=== PATIENT | male | born 1940 | race Caucasian/White ===

== ENCOUNTER → 2016-11-17 | Outpatient (CLI) | payer OTHER ==
[~2016-11-17] MED LIST: ASPIRIN81 M2 PO; FISH OIL 1,0001 EAC5 PO; LISINOPRIL-HCT1 EAC2 PO; LISINOPRIL20 MG PO; MULTIVITAMINS1 EAC7 PO; NORCO 5-325 TA1 EACH PO; VALIUM5 MG PO
== END ==
LOC: MRI 07:03
DX: S83.242A Other tear of medial meniscus, current injury, left knee, initial encounter (principal); M76.52 Patellar tendinitis, left knee; X58.XXXA Exposure to other specified factors, initial encounter; Y93.89 Activity, other specified; Y92.89 Other specified places as the place of occurrence of the external cause; Y99.8 Other external cause status

== ENCOUNTER → 2017-10-10 | Outpatient (CLI) | payer OTHER ==
[~2017-10-10] VITALS: Ht 177.8 cm; Wt 89.8 kg
--- NOTE | ~2017-10-10 | PATH ---
[facility] [address] [place] [address] PATHOLOGY RPT PROCEDURE Name: JAYESH AMAYA JR Room #: REG CLI M.R.#: [id number] Admission: 10/10/17 Date of : 44 Discharge: Report #: [id number] Path Case #: [id number] [facility] Accession Number: [id number] . 01 Material submitted: . BX GASTRITIS . 02 Diagnosis: Gastric mucosa, gastritis, endoscopic biopsy: - Mild reactive gastropathy. - Negative for intestinal metaplasia or atrophy. - Negative for Helicobacter pylori (properly controlled immunohistochemical stain performed). (IUV:mgr; 10/11/17) . . QRQ/10/11/2017 . 02 Electronically signed: . Nithya Mcgill MD, Pathologist NPI- [id number] . 01 Gross description: . Received in formalin labeled "Jayesh Amaya Jr, BX gastritis" and consists of 2 soft red tissue fragments each averaging 0.3 cm. They are entirely submitted as A1. (NICOLASA; 10/10/2017) JBR/JBR . 02 CPT . 372505 Performed at: [address], [place] [id number] MD Nelson Sandhu MD Phone: [phone] Performed at: [address] [id number] MD Nithya Mcgill MD Phone: [phone]
--- NOTE | ~2017-10-10 | P ---
[facility] [place] [address] PROCEDURE REPORT Name: ZEINA AMAYA Room #: REG [facility].#: [id number] Admission: 10/10/17 Attend Phys: Gio Vizcarra Discharge: Date of : 42 Report #: [id number] THIS REPORT FOR: //name// CC: Gio Wu MD DATE OF SERVICE: 10/10/2017 PROCEDURE PERFORMED: Colonoscopy. HISTORY OF PRESENT ILLNESS: The patient is a 77-year-old male with a Hemoccult positive stool and anemia. He denies any obvious blood in his stools. Upper endoscopy today showed gastritis and grade A erosive esophagitis, but no evidence of bleeding. Plan is for colonoscopy. DESCRIPTION OF PROCEDURE: The risks and benefits of the procedure were explained to the patient, those risks including but not limited to bleeding, perforation, the risk of sedation. He understood these risks and gave informed consent. Sedation was given using propofol per Anesthesia. Next, a digital rectal exam showed external hemorrhoids, otherwise normal. Next, using a standard Olympus colonoscope, the scope was placed in the patient's anus and advanced under direct vision to the cecum. The overall prep was excellent. The cecum and ileocecal valve were normal in appearance. Ascending, transverse and descending colon were normal. There were a few scattered diverticula noted in the sigmoid colon, no evidence of inflammation or bleeding. The rectal mucosa was normal. On retroflexion, no abnormalities were noted. The scope was then withdrawn and the procedure terminated. The patient tolerated the procedure well. IMPRESSION: 1. Sigmoid diverticulosis. 2. External hemorrhoids. 3. Otherwise, normal colonoscopy. RECOMMENDATIONS: We will place the patient on daily PPI therapy and then monitor hemoglobin. Thank you for allowing me to participate in his care. By: 0900 1143 Gio José MD /nt
--- NOTE | ~2017-10-10 | P ---
[facility] [place] [address] PROCEDURE REPORT Name: ZEINA AMAYA Room #: REG [facility].#: [id number] Admission: 10/10/17 Attend Phys: Gio Vizcarra Discharge: Date of : 42 Report #: [id number] THIS REPORT FOR: //name// CC: Gio Wu MD DATE OF SERVICE: 10/10/2017 PROCEDURE PERFORMED: Upper endoscopy with biopsies. HISTORY OF PRESENT ILLNESS: The patient is a 77-year-old male with a history of heme-positive stools and anemia. He takes Aleve on a daily basis. Denies any symptoms. No obvious blood in his stool. Plan is for EGD and colonoscopy today. DESCRIPTION OF PROCEDURE: The risks and benefits of the procedure were explained to the patient, those risks including but not limited to bleeding, perforation, the risk of sedation. He understood these risks and gave informed consent. Sedation was given using propofol per Anesthesia. Next, using a standard Olympus upper endoscope, the scope was placed in the patient's mouth and advanced under direct vision through the esophagus, stomach and into the second portion of the duodenum. The upper and mid esophagus was normal in appearance. In the distal esophagus, grade A erosive esophagitis was noted. No evidence of bleeding. The gastric mucosa in the fundus and body were normal; however, in the antrum, there was a moderate gastritis. No evidence of bleeding. Biopsies were obtained to rule out H. pylori. The pylorus was normal and patent. The duodenal bulb, first and second portion were all normal. The scope was then withdrawn and the procedure terminated. The patient tolerated the procedure well. IMPRESSION: 1. Grade A erosive esophagitis. 2. Gastritis. 3. Otherwise, normal upper endoscopy. RECOMMENDATIONS: 1. We recommend a trial of daily PPI therapy and monitoring hemoglobin. 2. We will proceed with colonoscopy next today. [facility] [address] [place] [address] PROCEDURE REPORT Name: ZEINA AMAYA Room #: REG [facility]#: [id number] Admission: 10/10/17 Attend Phys: Gio Vizcarra Discharge: Date of : 42 Report #: [id number] Thank you for allowing me to participate in his care. By: 0835 1052 Gio José MD /ori
== END | disposition home or self-care (01) ==
LOC: GI 07:01
DX: K57.30 Diverticulosis of large intestine without perforation or abscess without bleeding (principal); K64.4 Residual hemorrhoidal skin tags; K22.10 Ulcer of esophagus without bleeding; K31.9 Disease of stomach and duodenum, unspecified; I10 Essential (primary) hypertension; Z98.890 Other specified postprocedural states; Z96.652 Presence of left artificial knee joint; Z98.52 Vasectomy status; Z79.899 Other long term (current) drug therapy
CPT/HCPCS: 62110; 62900

== ENCOUNTER → 2018-01-23 | Outpatient (CLI) | payer OTHER | END | disposition home or self-care (01) | LOC: GI 06:49 | DX: R19.5 Other fecal abnormalities (principal); Z79.899 Other long term (current) drug therapy ==

== ENCOUNTER → 2018-07-16 | Outpatient (CLI) | payer OTHER | LOC: ULTRA 07:28 | DX: N28.1 Cyst of kidney, acquired (principal); R14.0 Abdominal distension (gaseous) ==

== ENCOUNTER → 2018-07-29 | Outpatient (CLI) | payer OTHER ==
[2018-07-29 09:10] LABS: CREATININE 1.2 mg/dL (0.7-1.3)
== END ==
LOC: NUC 08:37
PROVIDERS: Neuromusculoskeletal Medicine & OMM
DX: N28.1 Cyst of kidney, acquired (principal); M85.89 Other specified disorders of bone density and structure, multiple sites; M47.815 Spondylosis without myelopathy or radiculopathy, thoracolumbar region; M41.85 Other forms of scoliosis, thoracolumbar region; N40.0 Benign prostatic hyperplasia without lower urinary tract symptoms

== ENCOUNTER → 2018-08-14 | Outpatient (CLI) | payer OTHER ==
[~2018-08-14] VITALS: Ht 180.3 cm; Wt 93.0 kg
[~2018-08-14] MED LIST changes: +ALENDRONATE SOD70 MG PO; +MIRALAX17 GM PO; +OMEPRAZOLE40 MG PO; +VITAMIN D1000 UNI1 PO
--- NOTE | 2018-08-16 08:24 | P ---
[facility] [place] [address] PROCEDURE REPORT Name: ZEINA AMAYA JR [facility] [id number] Admission: 08/14/18 ������������������ Attend Phys: Gio Vizcarra Discharge: ������������������ Date of : 44 Report #: [id number] THIS REPORT FOR: //name// CC: Gio Hernandez DATE OF SERVICE: 08/14/2018 PROCEDURE PERFORMED: Upper endoscopy with biopsies. HISTORY OF PRESENT ILLNESS: The patient is a 77-year-old male who presents today for an upper endoscopy. He underwent an EGD and colonoscopy by myself on 10/10/2017, at that time for anemia and heme-positive stools. He was noted to have a mild gastritis. Biopsies at that time were H. pylori negative. He also had grade A erosive esophagitis and I placed the patient on daily PPI therapy, which he continues at this time on omeprazole. He continues to complain of discomfort. He also reports intermittent loose stools. Colonoscopy was performed that same day, which was normal other than sigmoid diverticulosis and external hemorrhoids. He later underwent a capsule endoscopy on 01/23/2018, which was negative. He apparently has had an ultrasound of the abdomen recently as well as a bone marrow biopsy that was negative. He believes he is not anemic any longer. Plan is for EGD. DESCRIPTION OF PROCEDURE: The risks and benefits of the procedure were explained to the patient, those risks including but not limited to bleeding, perforation and the risk of sedation. He understood these risks and gave informed consent. Sedation was given using propofol per anesthesia. Next, using a standard Olympus upper endoscope, the scope was placed in the patient's mouth and advanced under direct vision through the esophagus, stomach and into the second portion of the duodenum. Two small inlet patches were noted in the upper esophagus and mid esophagus was normal. In the distal esophagus, a possible short segment of Correa's was noted. Biopsies obtained. No evidence of esophagitis. Overall, the gastric mucosa was normal in the fundus and the body. There was a mild area of gastritis in the antrum. Biopsies were obtained again to rule out H. pylori. No evidence of ulcerations. The pylorus was normal and patent. The duodenal bulb, first and second portion were all normal. Biopsies were also obtained to rule out celiac sprue. The scope was then withdrawn and the procedure terminated. The patient tolerated the procedure well. IMPRESSION: 1. Mild gastritis. 2. 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 3. Otherwise, normal upper endoscopy. [address] [address] PROCEDURE REPORT Name: ZEINA AMAYA ELIZABETH Room #: REG [facility]#: [id number] Admission: 08/14/18 ������������������ Attend Phys: Gio Vizcarra Discharge: ������������������ Date of : 42 Report #: [id number] RECOMMENDATIONS: 1. Await biopsy results. 2. We discussed switching to a different PPI as this may be helpful. If this is not helpful, we would consider a trial of Levsin on a p.r.n. basis. Thank you for allowing me to participate in his care. ��������������������������������������������� <ELECTRONICALLY SIGNED> ���������������������������������������� By: Gio José MD ��������������������������������������������� 08/16/18 0824 0923 2256 Gio José MD /nt
--- NOTE | 2018-08-16 13:08 | PATH ---
[facility] [place] [address] [address] [place] [address] PATHOLOGY RPT PROCEDURE Name: JAYESH AMAYA Room #: REG CLI M.R.#: [id number] ������������������ Admission: 08/14/18 ������������������ Date of : 42 Discharge: Report #: [id number] Path Case #: [id number] [facility] Accession Number: [id number] . 01 Material submitted: . PART A: duodenum - BX DUODENUM PART B: stomach - BX GASTRITIS PART C: esophagus - BX DISTAL ESOPHAGUS. Modifiers: distal . 01 Clinical history: . Pre-op diagnosis: History of ulcers, abdominal pain, diarrhea Post-op diagnosis: Gastritis, abdominal pain, diarrhea A. R/O celiac B. R/O H. pylori C. R/O Correa's . 02 Diagnosis: A. Duodenum, "duodenum rule out celiac disease": - No obvious diagnostic changes. - There is no evidence of acute cryptitis, granulomas, adenomatous change, sprue-like changes or malignancy. . B. Gastric biopsy, "biopsy gastritis": - Mild chronic reactive gastropathy. - There is no evidence of atypia or malignancy. - The immunoperoxidase stains for Helicobacter pylori is negative. . C. Glandular gastric type mucosa, "biopsy distal esophagus": - No obvious diagnostic changes. - There is no evidence of acute cryptitis, granulomas, adenomatous change, goblet cell metaplasia, dysplasia or malignancy. . (SHA:edgar; 08/16/2018) [facility]/08/16/2018 . 02 Electronically signed: . Nikolay Unger MD, Pathologist NPI- [id number] . 01 Gross description: . A. The specimen is received in formalin, labeled "Jayesh Amaya Jr., biopsy duodenum, R/O celiac". Received are four segments of pale wright soft tissue ranging in size from 0.3 to 0.6 cm in maximum dimensions. The specimen is submitted entirely in cassette A1. . B. The specimen is received in formalin, labeled "Jayesh Amaya Jr., biopsy gastritis, R/O H. pylori". Received [place] two [place] [address] PATHOLOGY RPT PROCEDURE Name: JAYESH AMAYA JR Room #: REG [facility]#: [id number] ������������������ Admission: 08/14/18 ������������������ Date of : 42 Discharge: Report #: [id number] Path Case #: [id number] soft tissue measuring 0.3 and 0.4 cm in maximum dimensions. The specimen is submitted entirely in cassette B1. . C. The specimen is received in formalin, labeled "Jayesh Amaya ., biopsy distal esophagus, R/O Correa's". Received are two segments of pale wright soft tissue measuring 0.4 and 0.5 cm in maximum dimensions. The specimen is submitted entirely in cassette C1. (CAA; 08/15/2018) QAC/QAC . 02 Pathologist provided ICD-10: K31.9, R10.9, R19.7 . 02 CPT . 068438, 111710, 286310, Z84240 Specimen Comment: A courtesy copy of this report has been sent to Specimen Comment: [phone], . Specimen Comment: Report sent to / DR CORBETT Performed at: [address], [place] [id number] MD Nelson Sandhu MD Phone: [phone] Performed at: [address] [id number] MD Nithya Mcgill MD Phone: [phone]
== END | disposition home or self-care (01) ==
LOC: GI 07:32
DX: K31.9 Disease of stomach and duodenum, unspecified (principal); I10 Essential (primary) hypertension; K21.9 Gastro-esophageal reflux disease without esophagitis; Z96.642 Presence of left artificial hip joint; Z98.52 Vasectomy status; Z98.890 Other specified postprocedural states; Z79.899 Other long term (current) drug therapy
CPT/HCPCS: 62110; 62900

== ENCOUNTER → 2019-03-03 | Outpatient (CLI) | payer OTHER | LOC: RAD 12:52 | DX: M47.22 Other spondylosis with radiculopathy, cervical region (principal); M53.82 Other specified dorsopathies, cervical region ==

== ENCOUNTER → 2019-03-19 | Outpatient (CLI) | payer OTHER | LOC: MRI 09:24 | DX: M47.812 Spondylosis without myelopathy or radiculopathy, cervical region (principal); M48.02 Spinal stenosis, cervical region; M50.21 Other cervical disc displacement, high cervical region; M25.78 Osteophyte, vertebrae ==

== ENCOUNTER → 2019-03-27 | Outpatient (CLI) | payer OTHER ==
[2019-03-27 10:03] LABS: CREATININE 1.3 mg/dL (0.7-1.3)
== END ==
LOC: MRI 09:10
PROVIDERS: Neuromusculoskeletal Medicine & OMM
DX: G95.9 Disease of spinal cord, unspecified (principal); M54.2 Cervicalgia; M79.602 Pain in left arm

== ENCOUNTER → 2019-10-17 | Outpatient (CLI) | payer OTHER ==
[~2019-10-17] MED LIST changes: +ALEVE220 M1 PO; +CALCITONIN-SAL3.7 ML NASAL; +LIPITOR 10 MG10 M1 PO; +PEPCID20 MG PO
== END ==
LOC: MRI 09:15
PROVIDERS: ATTEND Neuromusculoskeletal Medicine & OMM
DX: M47.816 Spondylosis without myelopathy or radiculopathy, lumbar region (principal); M51.25 Other intervertebral disc displacement, thoracolumbar region; M48.061 Spinal stenosis, lumbar region without neurogenic claudication

== ENCOUNTER → 2019-10-29 | Outpatient (CLI) | payer OTHER ==
[~2019-10-29] VITALS: Ht 177.8 cm; Wt 93.0 kg
[2019-10-29 15:06] VITALS: BP 128/67
--- NOTE | 2019-10-29 15:18 | NUR ---
Pain Clinic Assessment: 1. History of Osteoarthritis: LUMBAR SPINE History of Rheumatoid Arthritis: DENIES 2. Height: 6 ft. 10 in. 208.3 cm. Weight: 205.0 lb. oz. 92.988 kg. Patient's BMI: 21.4 3. Vital Signs: BP: 128/67 Pulse: 78 Resp: 14 Temp: 02 Sat: 97 ECG Mon: 4. Pain Intensity: 7 5. Fall Risk: Dizziness: N Needs help standing or walking: N Fallen in the last 3 months: N Fall risk comments: 6. Patient on Blood Thinner: None 7. History of Hypertension: Y 8. Opioid Therapy greater than 6 weeks: N Opiate Contract Signed: 9. Risk Assessment Tool Provided: 10. Functional Assessment Tool: 11. Recreational Drug Use: Never Drug Type: Tobacco Use: Never Smoker Tobacco Type: Amount or Packs/day: How Many Years: Alcohol Use: Yes Frequency: Weekly Quant:
--- NOTE | 2019-10-29 15:21 | NUR ---
Pain Clinic Assessment: 1. History of Osteoarthritis: LUMBAR SPINE History of Rheumatoid Arthritis: DENIES 2. Height: 5 ft. 10 in. 177.8 cm. Weight: 205.0 lb. oz. 92.988 kg. Patient's BMI: 29.4 3. Vital Signs: BP: 128/67 Pulse: 78 Resp: 14 Temp: 02 Sat: 97 ECG Mon: 4. Pain Intensity: 7 5. Fall Risk: Dizziness: N Needs help standing or walking: N Fallen in the last 3 months: N Fall risk comments: 6. Patient on Blood Thinner: None 7. History of Hypertension: Y 8. Opioid Therapy greater than 6 weeks: N Opiate Contract Signed: 9. Risk Assessment Tool Provided: 10. Functional Assessment Tool: 11. Recreational Drug Use: Never Drug Type: Tobacco Use: Never Smoker Tobacco Type: Amount or Packs/day: How Many Years: Alcohol Use: Yes Frequency: Weekly Quant:
== END | disposition home or self-care (01) ==
LOC: PAIN 06:50
PROVIDERS: ATTEND Anesthesiology Pain Medicine
DX: M54.16 Radiculopathy, lumbar region (principal); G89.29 Other chronic pain; Z98.890 Other specified postprocedural states; Z96.652 Presence of left artificial knee joint; Z79.899 Other long term (current) drug therapy

== ENCOUNTER → 2020-06-30 | Outpatient (CLI) | payer OTHER | LOC: RAD 10:24 | PROVIDERS: ATTEND Neuromusculoskeletal Medicine & OMM | DX: M47.22 Other spondylosis with radiculopathy, cervical region (principal); M48.02 Spinal stenosis, cervical region ==

== ENCOUNTER → 2020-07-09 | Outpatient (CLI) | payer OTHER | LOC: MRI 09:21 | PROVIDERS: ATTEND Neuromusculoskeletal Medicine & OMM | DX: M50.123 Cervical disc disorder at C6-C7 level with radiculopathy (principal); M47.22 Other spondylosis with radiculopathy, cervical region; M25.78 Osteophyte, vertebrae; M48.02 Spinal stenosis, cervical region ==

== ENCOUNTER → 2020-09-07 | Outpatient (CLI) | payer OTHER ==
[~2020-09-07] VITALS: Ht 177.8 cm; Wt 89.9 kg
[~2020-09-07] MED LIST changes: +CALTRATE 600 +1 EAC1 PO; +FOLIC D3 94.381 EACH PO
[2020-09-07 13:29] VITALS: BP 124/78
--- NOTE | 2020-09-07 13:50 | NUR ---
Pain Clinic Assessment: 1. History of Osteoarthritis: LUMBAR SPINE History of Rheumatoid Arthritis: DENIES 2. Height: 5 ft. 10 in. 177.8 cm. Weight: 198.2 lb. oz. 89.903 kg. Patient's BMI: 28.4 3. Vital Signs: BP: 124/78 Pulse: 83 Resp: 14 Temp: 02 Sat: 98 ECG Mon: 4. Pain Intensity: 8 5. Fall Risk: Dizziness: N Needs help standing or walking: N Fallen in the last 3 months: N Fall risk comments: 6. Patient on Blood Thinner: None 7. History of Hypertension: Y 8. Opioid Therapy greater than 6 weeks: N Opiate Contract Signed: 9. Risk Assessment Tool Provided: 10. Functional Assessment Tool: 11. Recreational Drug Use: Never Drug Type: Tobacco Use: Never Smoker Tobacco Type: Amount or Packs/day: How Many Years: Alcohol Use: Yes Frequency: Special Occasions Quant: 2
--- NOTE | 2020-09-08 07:35 | HPC ---
[facility] [place] [address] PAIN MANAGEMENT CONSULTATION Name: ZEINA AMAYA JR Room #: REG [facility]#: [id number] Admission: 09/07/20 Attend Phys: Farzad Martinez DO Discharge: Date of : 42 Report #: [id number] THIS REPORT FOR: cc: Dru Wu Steven F. DO Johnson, James E. DO ~ DOC #: [id number] cc: Dru Wu MD, Best Martinez DO DATE OF SERVICE: 09/07/2020 DATE OF SERVICE: 09/07/2020. CHIEF COMPLAINT: Low back pain, bilateral lower extremity pain with paresthesias, left greater than right. HISTORY OF PRESENT ILLNESS: As you know, the patient is a very pleasant 79-year-old male who has been referred back to our pain clinic to undergo next in the series of lumbar epidural injections. The patient reports previous lumbar epidural injection giving improvement in symptoms of over 100%, lasting until recently where he had a slow and recurrence of symptoms. There was no inciting injury or trauma. Patient recently sought evaluation with Dr. Carrillo here at [facility] and advised to undergo next in the series of lumbar epidural injections as it did not appear he needed to have surgical procedures done at that time given the efficacy with the epidural injections. He returns today in followup visit, requesting a lumbar epidural injection placing pain score at 8/10. ALLERGIES: No known drug allergies. CURRENT MEDICATIONS: Atorvastatin 10 mg per day, lisinopril/hydrochlorothiazide 20/25 mg once a day, fexofenadine 20 mg per day, MiraLax 17 grams per day, calcium carbonate 1 tab per day, vitamin D3 1 tab per day. SOCIAL HISTORY: The patient denies tobacco, alcohol or IV or illicit drug use. He is retired about 5 years ago, unaccompanied today. IMAGING: No new imaging available. PQRS: The patient has known arthritic changes of lumbar spine. No rheumatoid arthritis. He is placing current pain score at 8/10. He is not a fall risk, has not had a fall in last 3 months. He is not on blood thinners, but is treated for hypertension. He is not on any chronic opioids, has a low opiate addiction potential. Pain impact today is rated at 40 of 70, moderate interference of daily activities secondary to pain. [address] [address] PAIN MANAGEMENT CONSULTATION Name: ZEINA AMAYA Room #: REG CLI [facility]#: [id number] Admission: 09/07/20 Attend Phys: Farzad Martinez DO Discharge: Date of : 42 Report #: [id number] PHYSICAL EXAMINATION VITAL SIGNS: Blood pressure 124/78, pulse 83, respiratory rate 14 and unlabored. The patient is 98% on room air. Height 5 feet 10 inches tall, weight 198.2 pounds, BMI calculated 28.4. GENERAL: A well-developed, well-nourished, well-hydrated 79-year-old male, appearing stated age, placing current pain score at 8/10. HEENT: Normocephalic, atraumatic. Pupils equal, round and reactive to light. Extraocular muscles are intact. The patient is wearing a mask in compliance with COVID-19 regulations. EXTREMITIES: Show no clubbing, no cyanosis. No appreciable edema. MUSCULOSKELETAL: Lower extremity strength equal and symmetrical 5/5 intact to light touch from L1 through S2 dermatomes. Seated straight leg raising negative. Supine straight leg raising positive on the left. Cj's test is negative. Deep tendon reflexes equal and symmetrical 2+/4 throughout the left patellar reflex appears to be reduced significantly to near absent. Lopez's negative. ASSESSMENT: 1. Symptomatic lumbar radiculopathy. 2. Displacement of lumbar intervertebral disk with radiculopathy. 3. Lumbosacral spondylosis with radiculopathy. 4. Severe neural foraminal stenosis of lumbar spine. 5. Lumbar degeneration. 6. Chronic intractable pain. PLAN: 1. The patient has been referred back to our service by Dr. Carrillo to undergo lumbar epidural injection under fluoroscopic guidance to address recurrent lumbar radicular pain. The patient places current pain score at 8/10. The patient reports 100% improvement in overall pain with the epidural injection provided in 10/2019 and is hopeful to see similar improvement today. He returns today in followup visit to undergo that procedure. The patient has been advised of the risks and the benefits of a lumbar epidural injection. These risks include but are not necessarily limited to bleeding, bruising, infection, worsening pain, no relief of pain, also risk of temporary or permanent muscle weakness, temporary or permanent nerve damage, possible paralysis post-dural puncture headache and . The patient states understood and wished to proceed. 2. No medication changes made at today's visit. The patient will continue current medical therapy as prior prescribed. 3. We plan to see the patient back in followup visit on an as needed basis for next in the series of lumbar epidural injections. DESCRIPTION OF PROCEDURE: L5-S1 left paramedian epidural steroid injection under fluoroscopic guidance. [address] [address] PAIN MANAGEMENT CONSULTATION Name: ZEINA AMAYA JR [id number] Admission: 09/07/20 Attend Phys: Farzad Martinez DO Discharge: Date of : 44 Report #: [id number] This is the second procedure of the first series that the patient is undergoing. After obtaining written consent, the patient was taken back to the fluoroscopy suite, placed in a prone position with pillow under the abdomen to decrease lumbar lordosis. The skin overlying the lumbosacral area was then prepped and draped in aseptic fashion. The L5-S1 vertebral interspace was then identified by AP fluoroscopy. The skin and subcutaneous tissue overlying the target site of injection was anesthetized with 3 mL 1% lidocaine. A 20-gauge 3-1/2 inch Tuohy needle was then advanced under fluoroscopic guidance towards the epidural space using a eft paramedian approach. The epidural space was identified using loss of resistance to air technique. After negative aspiration for heme or cerebrospinal fluid, a total of 1 mL of Omnipaque was injected. A lumbar epidurogram was confirmed using both AP and lateral fluoroscopy. After negative aspiration for heme or cerebrospinal fluid, 5 mL of a solution containing 2 mL 40 mg per mL 80 mg total triamcinolone along with 3 mL of lidocaine 1% was injected in increments. Contrast spread was noted posterior epidural space. The needle was then retracted approximately half way and needle tract flushed with 1 mL of 1% lidocaine. Needle was then removed. There were no apparent sensory or motor deficits in the lower extremity following the procedure. A sterile bandage was placed over the injection site. The heart rate, pulse, oximetry and blood pressure were continuously monitored after the procedure. There were no apparent complications. The patient tolerated the procedure well and was carefully escorted to the recovery room in stable condition. There were no apparent complications. After meeting discharge criteria, the patient was then discharged home. Farzad Martinez DO JEJ/PUN <ELECTRONICALLY SIGNED> By: Farzad Martinez DO 09/08/20 0735 1517 0100 Farzad Martinez DO /nt
== END | disposition home or self-care (01) ==
LOC: PAIN 12:07
PROVIDERS: ATTEND Anesthesiology Pain Medicine
DX: M51.16 Intervertebral disc disorders with radiculopathy, lumbar region (principal); M48.061 Spinal stenosis, lumbar region without neurogenic claudication; M47.27 Other spondylosis with radiculopathy, lumbosacral region; G89.29 Other chronic pain; I10 Essential (primary) hypertension; Z98.890 Other specified postprocedural states; Z79.899 Other long term (current) drug therapy

== ENCOUNTER → 2020-09-14 | Outpatient (CLI) | payer OTHER ==
[~2020-09-14] VITALS: Ht 177.8 cm; Wt 93.0 kg
[~2020-09-14] MED LIST changes: +NABUMETONE 500500 M2 PO
--- NOTE | ~2020-09-14 | HPC ---
[address] [address] PAIN MANAGEMENT CONSULTATION Name: ZEINA AMAYA JR [id number] Admission: 09/14/20 Attend Phys: Farzad Martinez DO Discharge: Date of : 42 Report #: [id number] THIS REPORT FOR: cc: Dru Wu,Farzad Noel DO ~ DOC #: [id number] cc: Dru Wu MD, Dr. Best Martinez, DATE OF SERVICE: 09/14/2020 REFERRING PHYSICIAN: Dr. Dru Wu. CHIEF COMPLAINT: Low back pain, bilateral lower extremity pain, left greater than right. HISTORY OF PRESENT ILLNESS: As you know, the patient is a pleasant 79-year-old male referred to our clinic to undergo epidural injections under fluoroscopic guidance in hopes of improving back and lower extremity pain. He underwent an epidural injection on 09/07/2020 for which the patient reports no improvement in symptoms. He returns today in followup visit to discuss treatment options. He is stating a pain level today of 7-8/10. He has suffered no new injury or trauma. No changes in medical history since 09/07/2020 where the patient underwent the first in the series of requested epidural injections. ALLERGIES: No known drug allergies. CURRENT MEDICATIONS: Multivitamin, lisinopril/hydrochlorothiazide 20/25 mg once a day, MiraLax 17 mg per day, atorvastatin 10 mg per day, famotidine 20 mg once a day, calcium carbonate 1 tab per day, folic acid 1 tab per day. SOCIAL HISTORY: The patient denies tobacco, alcohol or IV or illicit drug use. He is retired, retired about 5 years ago, unaccompanied today. IMAGING: No new imaging available. PQRS: The patient has known arthritic changes of lumbar spine. No rheumatoid arthritis. Placing pain intensity today 7-8/10. Not a fall risk, has not had a fall in last 3 months. He is not on blood thinners, but history of hypertension. He is not on chronic opioids, has a low opioid addiction potential based on our assessment tool. Pain impact is 50/70, severe interference of daily activities secondary to pain. PHYSICAL EXAMINATION: VITAL SIGNS: Blood pressure 117/67, pulse 69, respiratory rate 16 and unlabored. The patient is 97% on room air. Height 5 feet 10 inches tall, [facility] [address] [place] [address] PAIN MANAGEMENT CONSULTATION Name: ZEINA AMAYA JR [id number] Admission: 09/14/20 Attend Phys: Farzad Martinez DO Discharge: Date of : 42 Report #: [id number] weight 205 pounds, BMI calculated 29.4. GENERAL: Well-developed, well-nourished, well-hydrated 79-year-old male appearing his stated age. Pain is rated anywhere from 7-8/10. HEENT: Normocephalic, atraumatic. Pupils equal, round and responsive. EXTREMITIES: Show no clubbing, no cyanosis and no edema. MUSCULOSKELETAL: Lower extremity strength equal and symmetrical 5/5, intact to light touch from L1 through S2 dermatomes. Seated straight leg raising negative. Supine straight leg raising remains positive on the left. Cj's test is negative. Modified Gaenslen's positive for axial back pain. There is palpatory tenderness over one specific site, which is the L5-S1 facet on the left. ASSESSMENT: 1. Symptomatic lumbar radiculopathy. 2. Displacement of lumbar intervertebral disk with radiculopathy. 3. Lumbosacral spondylosis with radiculopathy. 4. Severe neural foraminal stenosis of lumbar spine. 5. Lumbar degeneration. 6. Chronic intractable pain. PLAN: 1. The patient has returned today in followup visit having reported to nursing that he did not feel that he receive much in the way of improvement in symptoms. Interestingly, he has had complete resolution of his low back symptoms and right lower extremity symptoms and complete resolution of his left lower extremity pain, but is left with 1 point specific area directly over the facet joints on the left. The patient and I had a very long discussion about the source of that pain. It appears that he is suffering from not only lumbar radiculopathy, but also severe facet arthropathy, which is consistent with his MRI imaging. As you are aware, the patient has severe neural foraminal stenosis, which is secondary to the facet arthropathy. We discussed with the patient his current pain issues and how to treat facet arthropathy pain. The following was discussed with the patient today. We discussed physical therapy, stretching exercises and core strengthening as a treatment approach. We discussed medication management, adding a consistent nonsteroidal anti-inflammatory. The patient reports that he does receive benefit with [id number] nonsteroidal anti-inflammatories, but has not been taking them consistently. We discussed intraarticular facet injections as a treatment course. We also discussed medial branch nerve blocks, radiofrequency lesioning as a treatment option assuming conservative treatments fail and ultimately the patient and I did discuss surgical stabilization of the L5-S1 level and foraminotomies to address his severe neural foraminal stenosis. After reviewing the risks and benefits of all proposed treatment options, the patient chose to make adjustments in medication management initially. If these are unsuccessful, then look towards either intra-articular facet injections or [facility] [address] [place] [address] PAIN MANAGEMENT CONSULTATION Name: JOSE LUISZEINA JOHNSON Room #: REG CL [facility].#: [id number] Admission: 09/14/20 Attend Phys: Farzad Martinez DO Discharge: Date of : 42 Report #: [id number] medial branch nerve blocks. 2. The patient will be started on nabumetone 500 mg dose 1 tab p.o. t.i.d. I recommend the patient take this with meals. I have given the prescription of #90 tablets, no refills. The patient will watch for dyspepsia, worsening of blood pressure or lower extremity edema with use of the medication. If he notes any side effects, discontinue immediately, call for further instructions. If the patient is noticing good benefit at 3 times a day dose and continue to see analgesic therapeutic benefits, then he can reduce to twice a day dose. If again, he is noticing good improvement in symptoms, no side effects, he can reduce to once a day maintenance dose. He will keep us apprised of his response to treatment. 3. We have plans to see the patient back in followup visit to review the efficacy of the medication in approximately 3 weeks. If the patient is not noticing much in the way of improvement with the medication, we will have him return to undergo either intra-articular facet injections or medial branch nerve blocks with plan to go towards radiofrequency lesioning. We will keep you apprised whether or not we move forward with interventional treatments. DO KAVIN Neal/ZANE By: [id number] Farzad Martinez DO /nt
[2020-09-14 14:08] VITALS: BP 117/67
--- NOTE | 2020-09-14 14:22 | NUR ---
Pain Clinic Assessment: 1. History of Osteoarthritis: LUMBAR SPINE History of Rheumatoid Arthritis: DENIES 2. Height: 5 ft. 10 in. 177.8 cm. Weight: 205.0 lb. oz. 92.988 kg. Patient's BMI: 29.4 3. Vital Signs: BP: 117/67 Pulse: 69 Resp: 16 Temp: 02 Sat: 97 ECG Mon: 4. Pain Intensity: 7-8 5. Fall Risk: Dizziness: N Needs help standing or walking: N Fallen in the last 3 months: N Fall risk comments: 6. Patient on Blood Thinner: None 7. History of Hypertension: Y 8. Opioid Therapy greater than 6 weeks: N Opiate Contract Signed: 9. Risk Assessment Tool Provided: 10. Functional Assessment Tool: 11. Recreational Drug Use: Never Drug Type: Tobacco Use: Never Smoker Tobacco Type: Amount or Packs/day: How Many Years: Alcohol Use: Yes Frequency: Special Occasions Quant: social
== END ==
LOC: PAIN 10:53
PROVIDERS: ATTEND Anesthesiology Pain Medicine
DX: M51.16 Intervertebral disc disorders with radiculopathy, lumbar region (principal); M47.26 Other spondylosis with radiculopathy, lumbar region; G89.29 Other chronic pain; M79.604 Pain in right leg; M79.605 Pain in left leg

== ENCOUNTER → 2021-01-05 | Outpatient (CLI) | payer OTHER ==
[~2021-01-05] VITALS: Ht 177.8 cm; Wt 94.0 kg
[2021-01-05 09:24] VITALS: BP 140/73
--- NOTE | 2021-01-05 10:02 | NUR ---
Pain Clinic Assessment: 1. History of Osteoarthritis: LUMBAR SPINE History of Rheumatoid Arthritis: DENIES 2. Height: 5 ft. 10 in. 177.8 cm. Weight: 207.2 lb. oz. 93.985 kg. Patient's BMI: 29.7 3. Vital Signs: BP: 140/73 Pulse: 64 Resp: 16 Temp: 02 Sat: 97 ECG Mon: 4. Pain Intensity: 0-6 5. Fall Risk: Dizziness: N Needs help standing or walking: N Fallen in the last 3 months: N Fall risk comments: 6. Patient on Blood Thinner: None 7. History of Hypertension: Y 8. Opioid Therapy greater than 6 weeks: N Opiate Contract Signed: 9. Risk Assessment Tool Provided: 10. Functional Assessment Tool: 11. Recreational Drug Use: Never Drug Type: Tobacco Use: Never Smoker Tobacco Type: Amount or Packs/day: How Many Years: Alcohol Use: Yes Frequency: Quant:
--- NOTE | 2021-01-06 07:56 | HPC ---
[facility] [address] [place] [address] PAIN MANAGEMENT CONSULTATION Name: ZEINA AMAYA JR Room #: REG [facility].#: [id number] Admission: 01/05/21 Attend Phys: Claire Bowen Discharge: Date of : 42 Report #: [id number] THIS REPORT FOR: cc: Best Carrillo MD,Dru Ramirez,Claire POLLARD ~ cc: Dru Wu MD, Farzad Martinez DO DATE OF SERVICE: 01/05/2021 CHIEF COMPLAINT: Low back pain, bilateral lower extremity pain. HISTORY OF PRESENT ILLNESS: This is a very pleasant 80-year-old gentleman who returns to the pain clinic for medication renewal. The patient reports in the past he had had epidurals that were beneficial for a short period of time, but continues to have one area of discomfort in his left lower back. He does report the nabumetone that Dr. Farzad Martinez started him on in september has been beneficial in controlling a significant portion of his pain. Today, rating his pain a 0 currently out of 10, but this morning upon arising it was 6/10. He believes when he takes the nabumetone, it affords him significant relief and would like to continue that medication. The patient reports that his pain is worse upon arising as well as bending and is relieved with this medication as well as sitting. He reports he is able to be active as possible by taking this medication and has not attempted to decrease this medicine from 3 tablets a day. He denies any dyspepsia or GI discomfort from this medication. ALLERGIES: No known drug allergies. CURRENT LIST OF MEDICATIONS: Nabumetone 500 mg t.i.d., Caltrate, vitamin D3, Pepcid, Lipitor, MiraLax, lisinopril, hydrochlorothiazide, and multivitamin. PQRS: 1. He has osteoarthritic changes in his lumbar spine. Denies any rheumatoid arthritis. 2. Height is 5 feet 10 inches, weight is 207. BMI is 29. 3. Vital signs, blood pressure 140/73, pulse is 64, respirations 16, oxygen sat is 97%. 4. Pain score is 0-6 depending on time of day. 5. Denies dizziness, does not need help walking or standing, has not fallen in the last 3 months. 6. The patient is not on any blood thinners, but does take medications for hypertension. 7. He does not take any opioid medications. 8. Risk assessment is low. Functional assessment is 60/70. 9. Recreational drug use, he denies. He is not a smoker and occasionally drinks alcohol. [address] [address] PAIN MANAGEMENT CONSULTATION Name: ZEINA AMAYA ELIZABETH Room #: REG CL Jc#: [id number] Admission: 01/05/21 Attend Phys: Claire Bowen Discharge: Date of : 42 Report #: [id number] PHYSICAL EXAMINATION: GENERAL: This is alert and oriented, very pleasant 80-year-old gentleman who is a good historian, who does not appear in any distress. He is well hydrated. Pain score today 0-6 depending on activities. HEENT: Normocephalic, atraumatic. Pupils equal, round and responsive. He is wearing a mask. EXTREMITIES: No clubbing, no cyanosis, no edema. MUSCULOSKELETAL: Modified ganglion is positive for axial low back. Palpatory tenderness in one spot at the L5-S1 facet on the left. Denies radicular symptoms currently. Lower extremity strength is symmetrical at 5/5 with good sensation from L1-L2. IMPRESSION: 1. Symptomatic lumbar radiculopathy. 2. Displacement of a lumbar intervertebral disk. 3. Lumbosacral spondylosis. 4. Lumbar facet arthroscopy at the L5-S1 level. 5. Lumbar degeneration. 6. Chronic intractable pain. 7. Severe neural foraminal stenosis of lumbar spine. 8. Medication management. PLAN: We discussed treatment options with the patient today. The patient has found the nabumetone 500 mg 3 times a day beneficial in helping relieve a significant portion of his pain as well as continued to be as active as possible. He would like to continue this medication and does not suffer any side effects of dyspepsia or GI discomfort. He does, however, take Pepcid on a daily basis. The patient has not tried to decrease this medication except for couple days when he was on vacation and forgot to take it and did notice an increase in his pain. I encouraged him to take the lowest most effective dose if he is able to get by with morning and at night with meals to attempt to do that, but we will continue him on his current dose of 3 tablets a day. This script will be sent electronically to [facility] for 90-day mail of supply with 1 refill. The patient instructed to call our office for an appointment within 6 months or he may obtain this medication from his primary care Dr. Wu. We did discuss possible facet injections as Dr. Martinez had described to him in the past or medial branch block and radiofrequency if the medication has become ineffective. Time spent with the patient in consultation, reviewing recent studies, clinical notes and physician reports, physical examination and correlation of physical findings and medical documentation to determine possible treatment 12 minutes. Time spent preparing for appointment reviewing prescription monitoring reports, [address] [place] [address] PAIN MANAGEMENT CONSULTATION Name: ZEINA AMAYA JR Room #: REG [facility] M..#: [id number] Admission: 01/05/21 Attend Phys: Claire Bowen Discharge: Date of : 42 Report #: [id number] reviewing previous records and proposed treatment options, reviewing current medications 5 minutes. Time spent preparing and sending electronic prescriptions with collaborating physician, Dr. Farzad Martinez and plan of treatment and documentation of visit 6 minutes. Total time spent 23 minutes. <ELECTRONICALLY SIGNED> By: Claire Bowen 01/06/21 [id number] Claire Bowen /nt
== END ==
LOC: PAIN 09-21 08:52
PROVIDERS: ATTEND Clinical Nurse Specialist Adult Health
DX: M51.16 Intervertebral disc disorders with radiculopathy, lumbar region (principal); M43.07 Spondylolysis, lumbosacral region; M47.26 Other spondylosis with radiculopathy, lumbar region; G89.29 Other chronic pain; M48.061 Spinal stenosis, lumbar region without neurogenic claudication; M79.669 Pain in unspecified lower leg

== ENCOUNTER → 2021-04-06 | Outpatient (CLI) | payer OTHER ==
[~2021-04-06] VITALS: Ht 177.8 cm; Wt 95.7 kg
--- NOTE | ~2021-04-06 | HPC ---
[address] [address] PAIN MANAGEMENT CONSULTATION Name: ZEINA AMAYA JR [id number] Admission: 04/06/21 Attend Phys: Farzad Martinez DO Discharge: Date of : 42 Report #: [id number] THIS REPORT FOR: cc: Dru Wu,Farzad Noel DO ~ cc: Dru Wu MD DATE OF SERVICE: 04/06/2021 REFERRING PHYSICIAN: Dr. Dru Wu. CHIEF COMPLAINT: Low back pain, bilateral lower extremity pain, left greater than right. HISTORY OF PRESENT ILLNESS: As you know, the patient is a very pleasant 80-year-old male referred to our clinic for epidural injections under fluoroscopic guidance to address lumbar radiculopathy, which involves the low back and bilateral lower extremities, left greater than right. The patient underwent lumbar epidural injection at our last visit, reporting 70-80% improvement in overall pain with that injection. He has been doing very well until just recently where his symptoms began to reoccur. He is denying any injury or trauma that may have led to symptom development. He returns today in followup visit requesting a lumbar epidural injection under fluoroscopic guidance to address pain, for which he places pain at 7/10. He states his pain is aching, numbness and tingling in sensation, exacerbated with bending and tends to be worse in the morning and improves with sitting and repositioning and epidural injections. ALLERGIES: No known drug allergies. CURRENT MEDICATIONS: See chart. SOCIAL HISTORY: The patient denies tobacco, alcohol or IV or illicit drug use. He is retired, retired about 5 to 5-1/2 years ago, unaccompanied today. IMAGING: No new imaging available. PQRS: The patient has known arthritic changes of lumbar spine. No rheumatoid arthritis. He is placing current pain intensity 7/10. He is not a fall risk, has not had a fall in last 3 months. He is not on blood thinners, but is treated for hypertension. He is on no opioids, has a low opioid addiction potential. Pain impact is 6/70, mild interference of daily activities secondary to pain. PHYSICAL EXAMINATION: VITAL SIGNS: Blood pressure 130/73, pulse 59, respiratory rate 18 and [facility] [address] [place] [address] PAIN MANAGEMENT CONSULTATION Name: ZEINA AMAYA Room #: REG [facility] M..#: [id number] Admission: 04/06/21 Attend Phys: Farzad Martinez DO Discharge: Date of : 42 Report #: [id number] unlabored. The patient is 97% on room air. Height 5 feet 10 inches tall, weight 211 pounds, BMI calculated 30.3. GENERAL: Well-developed, well-nourished, well-hydrated 80-year-old male appearing stated age, pain today 7/10. HEENT: Normocephalic, atraumatic. He is wearing a mask in compliance with COVID-19 regulations. EXTREMITIES: Show no clubbing, no cyanosis, no edema. MUSCULOSKELETAL: Seated straight leg raising negative. Supine straight leg raising positive on the left. Cj's test negative. Modified Gaenslen's positive for axial back pain. Ankle clonus negative. ASSESSMENT: 1. Symptomatic lumbar radiculopathy. 2. Displacement of lumbar intervertebral disk with radiculopathy. 3. Severe neural foraminal stenosis of lumbar spine. 4. Lumbosacral spondylosis with radiculopathy. 5. Lumbar degeneration. 6. Chronic intractable pain. PLAN: 1. The patient returns today in followup visit requesting to undergo lumbar epidural injection under fluoroscopic guidance. He was very pleased with response to the initial injection noticing 70% improvement in overall symptoms with the injection provided at last visit. This has lasted until just recently where he has had a slow and progressive return of symptoms. He returns today in followup visit requesting this epidural injection in hopes of improving pain. Has been advised the risks and benefits of the procedure, states he understood and wished to proceed. 2. No medication changes made at today's visit. The patient will continue current medical therapy as prior prescribed. 3. We plan to see the patient back in followup visit on an as needed basis for the next in the series of lumbar epidural injections. We are once again hopeful the patient will see good and prolonged benefit with the injection provided today. PROCEDURE NOTE DESCRIPTION OF PROCEDURE: L5-S1 left paramedian epidural steroid injection under fluoroscopic guidance. This is the first procedure of the second series that the patient is undergoing. After obtaining written consent, the patient was taken back to the fluoroscopy suite, placed in a prone position with pillow under the abdomen to decrease lumbar lordosis. The skin overlying the lumbosacral area was then prepped and draped in aseptic fashion. The L5-S1 vertebral interspace was then identified [address] [address] PAIN MANAGEMENT CONSULTATION Name: ZEINA AMAYA JR Room #: REG [facility]#: [id number] Admission: 04/06/21 Attend Phys: Farzad Martinez DO Discharge: Date of : 42 Report #: [id number] by AP fluoroscopy. The skin and subcutaneous tissue overlying the target site of injection was anesthetized with 3 mL 1% lidocaine. A 20-gauge 3-1/2-inch Tuohy needle was then advanced under fluoroscopic guidance towards the epidural space using a left paramedian approach. The epidural space was identified using loss of resistance to air technique. After negative aspiration for heme or cerebrospinal fluid, a total of 1 mL of Omnipaque was injected. A lumbar epidurogram was confirmed using both AP and lateral fluoroscopy. After negative aspiration for heme or cerebrospinal fluid, 5 mL of a solution containing 2 mL 40 mg per mL 80 mg total triamcinolone along with 3 mL of lidocaine 1% was injected in increments. Contrast spread was noted in the posterior epidural space. The needle was then retracted approximately half way and needle tract flushed with 1 mL of 1% lidocaine. Needle was then removed. There were no apparent sensory or motor deficits in the lower extremity following the procedure. A sterile bandage was placed over the injection site. The heart rate, pulse, oximetry and blood pressure were continuously monitored after the procedure. There were no apparent complications. The patient tolerated the procedure well and was carefully escorted to the recovery room in stable condition. There were no apparent complications. After meeting discharge criteria, the patient was then discharged home. By: [id number] Farzad Martinez DO /nt
[2021-04-06 09:51] VITALS: BP 130/73
--- NOTE | 2021-04-06 09:55 | NUR ---
Pain Clinic Assessment: 1. History of Osteoarthritis: LUMBAR SPINE History of Rheumatoid Arthritis: DENIES 2. Height: 5 ft. 10 in. 177.8 cm. Weight: 211.0 lb. oz. 95.709 kg. Patient's BMI: 30.3 3. Vital Signs: BP: 130/73 Pulse: 59 Resp: 18 Temp: 02 Sat: 97 ECG Mon: 4. Pain Intensity: 7 5. Fall Risk: Dizziness: N Needs help standing or walking: N Fallen in the last 3 months: N Fall risk comments: 6. Patient on Blood Thinner: None 7. History of Hypertension: Y 8. Opioid Therapy greater than 6 weeks: N Opiate Contract Signed: 9. Risk Assessment Tool Provided: low-0 10. Functional Assessment Tool: 11. Recreational Drug Use: Never Drug Type: Tobacco Use: Never Smoker Tobacco Type: Amount or Packs/day: How Many Years: Alcohol Use: Yes Frequency: Quant:
== END | disposition home or self-care (01) ==
LOC: PAIN 07:07
PROVIDERS: ATTEND Anesthesiology Pain Medicine
DX: M51.16 Intervertebral disc disorders with radiculopathy, lumbar region (principal); M48.061 Spinal stenosis, lumbar region without neurogenic claudication; M47.27 Other spondylosis with radiculopathy, lumbosacral region; G89.29 Other chronic pain; I10 Essential (primary) hypertension; Z98.890 Other specified postprocedural states; Z79.899 Other long term (current) drug therapy

== ENCOUNTER → 2021-06-03 | Outpatient (CLI) | payer OTHER | LOC: MRI 08:52 | PROVIDERS: ATTEND Family Medicine | DX: R10.13 Epigastric pain (principal); R14.0 Abdominal distension (gaseous) ==

== ENCOUNTER → 2021-06-14 | Outpatient (CLI) | payer OTHER ==
[~2021-06-14] VITALS: Ht 177.8 cm; Wt 92.9 kg
[2021-06-14 10:02] VITALS: BP 120/78
--- NOTE | 2021-06-14 10:18 | NUR ---
Pain Clinic Assessment: 1. History of Osteoarthritis: LUMBAR SPINE History of Rheumatoid Arthritis: DENIES 2. Height: 5 ft. 10 in. 177.8 cm. Weight: 204.8 lb. oz. 92.897 kg. Patient's BMI: 29.4 3. Vital Signs: BP: 120/78 Pulse: 83 Resp: 16 Temp: 02 Sat: 96 ECG Mon: 4. Pain Intensity: 8 5. Fall Risk: Dizziness: N Needs help standing or walking: N Fallen in the last 3 months: N Fall risk comments: 6. Patient on Blood Thinner: None 7. History of Hypertension: Y 8. Opioid Therapy greater than 6 weeks: N Opiate Contract Signed: 9. Risk Assessment Tool Provided: low-0 10. Functional Assessment Tool: 11. Recreational Drug Use: Never Drug Type: Tobacco Use: Never Smoker Tobacco Type: Amount or Packs/day: How Many Years: Alcohol Use: Yes Frequency: Special Occasions Quant: 2
--- NOTE | 2021-06-15 10:10 | HPC ---
[facility] [place] [address] PAIN MANAGEMENT CONSULTATION Name: ZEINA AMAYA JR Room #: REG [facility].#: [id number] Admission: 06/14/21 Attend Phys: Farzad Martinez DO Discharge: Date of : 44 Report #: [id number] THIS REPORT FOR: cc: Trenton Brown MD, Neal A. MD Johnson, James E. DO ~ cc: Dru Wu MD DATE OF SERVICE: 06/14/2021 CHIEF COMPLAINT: Low back pain, bilateral lower extremity pain, left greater than right. HISTORY OF PRESENT ILLNESS: As you know, the patient is a very pleasant 80-year-old male referred to our clinic for epidural injections under fluoroscopic guidance to address lumbar radiculopathy. The pain the patient experiences involves the low back, bilateral lower extremities, left greater than right. He returns today in followup visit with recurrence of his lumbar radicular symptoms. He denies injury or trauma. He now places pain score at 8/10. Describes the pain as chronic aching, numbness and tingling in sensation, exacerbated with bending and tends to be worse in the morning. The previous epidural injection gave 80% improvement in overall pain lasting until just recently. He returns today in followup visit requesting the next in the series of epidural injections in hopes of improving symptoms further. ALLERGIES: No known drug allergies. CURRENT MEDICATIONS: See chart. SOCIAL HISTORY: The patient denies tobacco, alcohol or IV or illicit drug use. He is retired, retired about 6 years ago, unaccompanied at today's visit. IMAGING: No new imaging available. PQRS: The patient has known arthritic changes of the lumbar spine, bilateral hips and knees. No rheumatoid arthritis. He is placing current pain intensity at 8/10. He is not a fall risk, has not had a fall in last few months. He is not on blood thinners, but is treated for hypertension. He is on no chronic opioids, has a low opioid addiction potential based on assessment tool. Pain impact remains low at -. PHYSICAL EXAMINATION: VITAL SIGNS: Blood pressure 120/78, pulse 83, respiratory rate 16 and unlabored. The patient is 96% on room air. Height 5 feet 10 inches tall, weight 204.8 pounds, BMI calculated 29.4. GENERAL: Well-developed, well-nourished, well-hydrated 80-year-old male appearing stated age, pain is rated today at 8/10. [place] [address] PAIN MANAGEMENT CONSULTATION Name: ZEINA AMAYA Room #: REG [facility].#: [id number] Admission: 06/14/21 Attend Phys: Farzad Martinez DO Discharge: Date of : 44 Report #: [id number] HEENT: Normocephalic, atraumatic. Pupils equal, round and responsive. He is wearing a mask in compliance with COVID-19 regulations/hospital policy. EXTREMITIES: Show no clubbing, no cyanosis, no edema. MUSCULOSKELETAL: Lower extremity strength is symmetrical, 5/5. Muscle bulk and tone is equal and symmetrical in comparing lower extremities. Seated straight leg raising negative. Supine straight leg raising is positive on the left approximately 70-degree angle. Ankle clonus negative. Babinski is negative. Gait appears just mildly antalgic, favoring left lower extremity over right. He is able to toe walk and heel walk without difficulty. ASSESSMENT: 1. Symptomatic lumbar radiculopathy. 2. Displacement of lumbar intervertebral disk with radiculopathy. 3. Severe neural foraminal stenosis of lumbar spine. 4. Lumbosacral spondylosis with radiculopathy. 5. Lumbar degeneration. 6. Chronic intractable pain. PLAN: 1. The patient returns today in followup visit to undergo the next in the series of lumbar epidural injections under fluoroscopic guidance. He reports about an 80% improvement in overall pain with the injection provided at our last visit. Unfortunately, his symptoms have begun to reoccur. There have been no inciting injury or trauma. The patient returns for the next in the series of epidural injections. He has been advised of the risks and the benefits of this procedure, states understood and wished to proceed. 2. No medication changes made at today's visit. The patient will continue current medical therapy as prior prescribed. 3. We plan to see the patient back in followup visit on an as needed basis for the next in the series of lumbar epidural injections. We are once again hopeful the patient will see good and prolonged benefit with the injection provided today. PROCEDURE NOTE. DESCRIPTION OF PROCEDURE: L5-S1 left paramedian epidural steroid injection under fluoroscopic guidance. After obtaining written consent, the patient was taken back to fluoroscopy suite, placed in prone position, pillow under abdomen to decrease lumbar lordosis. Skin overlying lumbosacral area prepped and draped in aseptic fashion. The L5-S1 vertebral interspace identified by AP fluoroscopy. Skin and subcutaneous tissue overlying target site injection anesthetized with 3 mL 1% lidocaine. A 20 gauge 3-1/2 inch Tuohy needle advanced under fluoroscopic guidance towards [address] [address] PAIN MANAGEMENT CONSULTATION Name: ZEINA AMAYA JR [id number] Admission: 06/14/21 Attend Phys: Farzad Martinez DO Discharge: Date of : 44 Report #: [id number] the epidural space using a left paramedian approach. Epidural space identified using loss of resistance to air technique. After negative aspiration for heme or cerebrospinal fluid, 1 mL of Omnipaque injected. Lumbar epidurogram was confirmed using both AP and lateral fluoroscopy. After negative aspiration for heme or cerebrospinal fluid, 5 mL solution containing 2 mL 40 mg per mL 80 mg total triamcinolone along with 3 mL of lidocaine, 1% injected slowly. Needle retracted intermediate, flushed with 1 mL of 1% lidocaine and removed. Sterile bandage placed over injection site. No new motor deficits present in lower extremity following procedure. The patient tolerated the procedure well, carefully escorted to recovery room in stable condition. No apparent complications. After meeting discharge criteria, the patient discharged home. <ELECTRONICALLY SIGNED> By: Farzad Martinez DO 06/15/21 1010 [id number] Farzad Martinez DO /nt
== END | disposition home or self-care (01) ==
LOC: PAIN 06:52
PROVIDERS: ATTEND Anesthesiology Pain Medicine
DX: M51.16 Intervertebral disc disorders with radiculopathy, lumbar region (principal); M47.27 Other spondylosis with radiculopathy, lumbosacral region; M48.061 Spinal stenosis, lumbar region without neurogenic claudication; G89.29 Other chronic pain; I10 Essential (primary) hypertension; M19.90 Unspecified osteoarthritis, unspecified site; Z98.890 Other specified postprocedural states; Z79.899 Other long term (current) drug therapy; Z87.891 Personal history of nicotine dependence